=== PATIENT | male | born 1955 | race Caucasian/White ===

== ENCOUNTER → 2019-05-11 00:01 | Outpatient (RCR) | payer MEDICARE, SELFPAY | LOC: ONCMED 04-12 07:21 → ONCRAD 04-14 06:10 | PROVIDERS: Family Provider Family Medicine; PCP Family Medicine; Visit Provider Specialist | DX: Z51.0 Encounter for antineoplastic radiation therapy (principal); C79.51 Secondary malignant neoplasm of bone; Z79.899 Other long term (current) drug therapy; C78.7 Secondary malignant neoplasm of liver and intrahepatic bile duct; C80.1 Malignant (primary) neoplasm, unspecified; D35.01 Benign neoplasm of right adrenal gland; G89.3 Neoplasm related pain (acute) (chronic); C78.01 Secondary malignant neoplasm of right lung; C78.02 Secondary malignant neoplasm of left lung; I11.0 Hypertensive heart disease with heart failure; I50.9 Heart failure, unspecified; J44.9 Chronic obstructive pulmonary disease, unspecified; I25.10 Atherosclerotic heart disease of native coronary artery without angina pectoris; E11.9 Type 2 diabetes mellitus without complications; K44.9 Diaphragmatic hernia without obstruction or gangrene; Z79.891 Long term (current) use of opiate analgesic; Z79.84 Long term (current) use of oral hypoglycemic drugs; Z98.1 Arthrodesis status | CPT/HCPCS: 36591 ×2; 77014 ×11; 77280; 77290 ×2; 77295; 77300; 77334 ×3; 77387 ×4; 77412 ×15; 77470; 80053 ×2; 85025 ×2; 96372; 99214 ×3; J0897; J1642 ×2 ==

== ENCOUNTER 2019-06-02 05:46 | Outpatient (RCR) | payer MEDICARE, SELFPAY ==
[2019-05-24 09:30] LABS: Hematocrit 38.4 % (42.0-52.0); Hemoglobin 12.6 g/dL (11.7-16.6); Mean Corpuscular HGB Conc 32.8 g/dL (30.0-36.0); Mean Corpuscular Hemoglobin 27.9 pg (28.0-34.0); Mean Platelet Volume 10.3 fL (7.4-10.4); Platelet Count 231 10^3/cmm (130-400); Red Blood Count 4.52 10^6/uL (4.1-5.3); Red Cell Distribution Width 14.6 % (12.1-15.1); White Blood Count 5.7 10^3/uL (4.0-10.0)
[2019-05-24 09:40] LABS: Alanine Aminotransferase 16 U/L (0-41); Albumin Level 3.8 g/dL (3.5-5.2); Alkaline Phosphatase 119 IU/L (40-130); Anion Gap 18.5 (5-19); Aspartate Amino Transferase 20 U/L (0-40); Blood Urea Nitrogen 16 mg/dL (8-23); Calcium 9.3 mg/Dl (8.8-10.2); Carbon Dioxide 24 mmol/L (22-29); Chloride 98 mmol/L (98-107); Globulin 3.7 g/dL (1.3-4.6); Glomerular Filtration Rate 97.3 mL/min (90-130); Glucose 231 mg/dL (74-106); Potassium 4.5 mmol/L (3.5-5.1); Sodium 136 mmol/L (136-145); Total Bilirubin 0.3 mg/dL (0.15-1.2); Total Protein 7.5 g/dL (6.6-8.7)
--- NOTE | 2019-05-24 10:50 | ONC FU_ITS ---
Dr. Murphy follow up note Patient: Per Matta < Unit #: [id number]: 1955 Dicatated By: Don Murphy M.D.Date of Visit:May 24, 2019 Onc Med Follow-up/Prog Note History of Present Illness: Mr. Per Matta , is a 63-year-old gentleman with history of CHF, COPD, CAD, diabetes and hypertension. Was recently diagnosed with metastatic adenocarcinoma her liver biopsy done on 12/03/2018. As per patient on 11/07/2018 he went to [facility] ER in [place], [place] with nausea vomiting, headaches, dizziness and generalized weakness and fatigue. At that time he had tick bite in the yard. lyme antibody was negative. At that time his white blood count was 2.7 hemoglobin 11.9 crit 35.5 and platelets 118,000 CT scan of chest abdomen pelvis was done on 11/08/2018 showed negative for PE but positive for multiple pulmonary masses in the both lungs, moderate emphysematous changes. And large irregular mass in the right lobe of the liver measuring 7.4 x 6 cm. Left adrenal mass measuring 4.4 cm suspicious for metastatic disease and on 12/03/2018 he underwent liver biopsy which confirmed adenocarcinoma, primary colorectal region was favored, as per patient he underwent EGD which showed hiatal hernia, no other abnormality and colonoscopy which showed polyp which was benign otherwise unremarkable exam Patient was also having progressive lower back pain and radiological studies confirmed pathological fracture of L1 vertebra, as per patient he underwent single dose of radiation therapy followed by vertebral surgery, T12-L1 laminectomy for resection of epidural tumor, L1 corpectomy and posterior fusion between T12-L2 on 12/23/2018. His further workup done showed his tumor marker checked on 12/10/2018, CA 19???9 was 92.90, CEA was 222.10 Patient denies any history of melena or hematochezia, denies any history of hemoptysis or hematemesis denies any history of jaundice denies any history of hematuria but weight loss and chronic back pain. And now with memory loss and off and on confusion. Patient is on MS Contin 30 mg every 12 hours and hydrocodone for breakthrough. As per medical note, patient was offered CT scan of head at [facility] in [place], [place] but patient declined. 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 and now clinical trial available with [id number], RET mutation for which cabozantinib ,lenvetinib , regorafenib,sorafenib and sunitinib can be used in future , if needed started on FOLFOX/Avastin every 2 weeks 0n 02/15/2019 Interim history, since his last visit patient developed severe right hip pain for which he went to emergency room on 03/18/[address] scan showed destructive lesion involving inner trochanteric right femur measuring 2.8 x 2.5 x 3.2 cm there is a thinning of adjacent anterior femoral cortex and on 03/19/2019 patient underwent prophylactic fixation and biopsy of right intertrochanteric hip fracture utilizing the eblizz gamma 3 trochanteric nail system and biopsy was obtained which confirmed 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 Patient tolerated procedure well now using walker to move around. CT PET scan done on 04/17/2019 showed there is a 6.3 x 4.2 cm mass in the posterior right lower lobe with central necrosis invasion into chest wall and osseous destruction of the posterior right ninth rib and right transverse process of T9 with SUV of 18.5. Other scattered pulmonary nodules in the right lower lobe are FDG positive. A solitary malignant a mass in the anterior liver is centrally necrotic and measures 10.1 x 4.4 cm with SUV of 10. Multiple sites of active osseous metastatic disease are present in the right iliac, L5, T10, spinous process of T3, and sternum sternal lesion has SUV of 11.7. Clinically described osseous metastatic disease the right femur and L1 are FDG negative. 2.8 x 2.2 cm right adrenal mass consistent with adenoma s/p radiation therapy for his mid back pain/Right chest wall and right hip started on 04/22/2019 till 05/14/2019. His systemic chemotherapy was on hold during chemoradiation therapy Came for follow-up and to resume his systemic chemotherapy with FOLFOX/Avastin but patient is complaining of epigastric pain/nausea/indigestion since he was treated with radiation. But no hemoptysis or hematemesis, no diarrhea, or constipation. Pain in the mid back and right chest has improved significantly with radiation therapy and also in the right pelvis. Medications: amLODIPine Besylate 1 Tablet (of 5 mg) Oral daily, Carvedilol 1 Tablet (of 25 mg) Oral b.i.d., Eliquis 1 Tablet (of 5 mg) Oral b.i.d., Furosemide 1 Tablet (of 20 mg) Oral daily, HYDROcodone-Acetaminophen 1 Tablet (of 10-325 mg) Tablet Oral q 8 hours PRN, Linzess Capsule Oral, Losartan Potassium 1 Tablet (of 50 mg) Oral daily, metFORMIN HCl 1 Tablet (of 500 mg) Oral b.i.d., Nitrostat 1 Tablet (of 0.4 mg) Tablet, sublingual Sublingual PRN, Pravastatin Sodium 1 Tablet (of 40 mg) Oral daily, Sertraline HCl 1 Tablet (of 100 mg) Oral daily Allergies: No Known Allergies. Review of Systems: Constitutional - Appetite is poor and weight is decreasing. No fever, chills, hot flashes. Positive for night sweats. Energy level is poor, ENMT - No sinus congestion/drainage. No mouth sores. No sore throat or difficulty swallowing, Hematologic/Lymphatic - Pt reports easy bruising, Respiratory - Positive for occasional shortness of breath. No cough. No pleuritic pain or hemoptysis, Cardiovascular - No angina pain. No palpitations, Gastrointestinal - Positive for nausea and vomiting. No heartburn or acid reflux. No diarrhea. Positive for constipation. No blood in the stool or black stools, Genitourinary (M) - No dysuria or hematuria. No urinary frequency. No urgency or incontinence, Musculoskeletal - Positive for back pain, Neurologic - No headache. Positive for occasional dizziness. No numbness/paresthesias or other focal neurologic symptoms, Psychiatric - No anxiety. Positive for depression (Pt states he is being treated for depression). Positive for insomnia. Vital Signs: Performed on May 24, 2019 09:28 Height - 74.00 in Weight - 215 lbs (LOW) BSA - 2.24 sq.m BMI - 27.60 Temperature - 97.6 F (LOW) Pulse - 95 /min Respiration - 16 /min BP - 138/95 mm(hg) O2 Sat - 95 % (LOW) Pain - 3 Performance Status: 2 - Ambulatory/capable of all self-care, unable to perform any work activities. Up and about more than 50% of waking hours. (ECOG) Physical Examination: ENMT - No oral exudates, ulcers, masses, thrush or mucositis. Oropharynx clear. Tongue normal, Respiratory - Lungs are clear to auscultation without rhonchi or wheezing, Cardiovascular - Regular rate and rhythm of heart, Abdomen - Non-tender, non-distended, Good bowel sounds. No guarding or rebound tenderness. No pulsatile masses, Extremities - no edema. Lab/Imaging: Test performed on May 10, 2019 08:11 Sodium 137 mmol/L Potassium 4.4 mmol/L Chloride 101 mmol/L CO2 24 mmol/L Anion Gap 16.4 BUN 15 mg/dL Creatinine 0.8 mg/dL Cr Clearance (Est) 134.4200 mL/min eGFR 97.3 mL/min Glucose 253 mg/dl Calcium 9.3 mg/dL Protein, Total 6.5 g/dL Albumin 4.2 g/dL Globulin 2.3 gm/dL Bilirubin, Total 0.3 mg/dL ALT (SGPT) 10 U/L AST (SGOT) 15 U/L Alkaline Phosphatase 89 U/L WBC 4.9 10 3/uL RBC 4.16 10 6/uL HGB 11.6 g/dL HCT 35.7 % MCV 85.8 fl MCH 27.9 pg MCHC 32.5 g/dl RDW 15.4 % Platelet Count 173 10 3/cmm MPV 10.2 fl Neutrophils 3.9 10 3/uL Lymphocytes 0.5 10 3/uL Monocytes 0.4 10 3/uL Eosinophils 0.1 10 3/uL Basophils 0.0 10 3/uL Neutrophil % 80.4 % Lymphocyte % 10.4 % Monocyte % 7.6 % Eosinophil % 1.2 % Basophils % 0.2 % Test performed on Mar 15, 2019 11:58 Ua Color YELLOW Ua Appearance CLEAR Ua Glucose TRACE Ua Bilirubin NEG Colored urine samples may result in false positive dipstick reactions. Ua Ketones 1+ Ua Specific [place] 1.025 Ua Blood NEG Ua pH 5.0 Ua Protein NEG Ua Nitrites NEG Ua Leukocyte Esterase NEG Test performed on Feb 22, 2019 12:00 Ferritin 309.0 ng/ml Iron 44 ug/dL % Iron Saturation 20.3 % Test performed on Feb 15, 2019 09:02 CBC Slide Review SLIDE REVIEW PERFORM SLIDE REVIEW AGREES WITH AUTOMATED RESULTS ST Impression: Metastatic adenocarcinoma per liver biopsy done on 12/03/2018 Cancer type ID was done on 01/28/2019 showed with 96% probability , intestine is a primary Less than 1% of malignant cells are positive for neuroendocrine marker , Tumor was positive for CK 20, CD X2, negative for TTF-1, PSA, CA 19???9 92.90 CEA 222.10 Congestive heart failure COPD, Diabetes mellitus Hypertension Lower back pain Status post single dose radiation to lumbar spine followed by vertebral surgery done on 12/23/2018 Now on MS Contin 30 mg every 12 hours and hydrocodone for breakthrough Mid back pain follow-up CT PET scan done on 04/17/2019 showed 6.3 by is 4.2 cm mass in the posterior right lower lobe with central necrosis invasion into chest wall and bone destruction of posterior right ninth rib and transverse process of T9. s/p radiation therapy To right chest wall, right hip started on 04/13/2019 till 05/14/2019 Plan: Discussed with patient regarding his labs white blood count 5.7 hemoglobin 12.6 crit 38.4 platelets 231,000 CMP within normal limit except glucose 231 Clinically, patient is doing well, recently completed radiation therapy to right chest/right hip for metastatic disease and with that his pain has improved but now complaining of indigestion epigastric pain nausea probably due to radiation-induced gastritis/enteritis. Patient was to Resume systemic chemotherapy with Avastin/FOLFOX today but because of radiation-induced enteritis/gastritis related signs symptoms, we will hold his chemotherapy with another week and he was also advised to avoid spices, coffee, citrate food/juices and also consider symptomatic treatment. He was also advised to monitor his blood sugar. Return to clinic in 1 week if symptoms improve to resume his systemic chemotherapy. Patient is also considering moving to [place] in first week of June 2019, referral has been made Signed By: Don Murphy M.D. <<Signature on File>>
[2019-05-24 11:04] LABS: Absolute Segmented Neutrophil 4.5 10/cmm (1.6-7.1); Band Neutrophils Absolute 0.3 10^3/cmm (0.0-1.2); Basophils Absolute 0.1 10^3/cmm (0.0-0.2); Lymphocytes 9 %; Monocytes Absolute 0.2 10^3/cmm (0.1-0.6); Platelet Estimate Normal (Normal); Segmented Neutrophils 80 %; Total Cells Counted 100 (0-100)
[2019-05-31 08:45] LABS: Basophils % 0.3 %; Eosinophils # 0.1 10^3/uL (0.0-0.8); Eosinophils % 0.8 %; Hematocrit 38.4 % (42.0-52.0); Hemoglobin 12.4 g/dL (11.7-16.6); Lymphocytes # 0.6 10^3/uL (0.8-4.8); Lymphocytes % 10.2 %; Mean Corpuscular HGB Conc 32.3 g/dL (30.0-36.0); Mean Corpuscular Hemoglobin 28.5 pg (28.0-34.0); Mean Corpuscular Volume 88.3 fL (80-94); Mean Platelet Volume 9.6 fL (7.4-10.4); Monocytes # 0.5 10^3/uL (0.2-0.9); Monocytes % 7.8 %; Neutrophils # 4.8 10^3/uL (1.8-7.7); Neutrophils % 80.6 %; Nucleated Red Blood Cells % 0 %; Platelet Count 214 10^3/cmm (130-400); Red Blood Count 4.35 10^6/uL (4.1-5.3); Red Cell Distribution Width 14.5 % (12.1-15.1)
[2019-05-31 09:03] LABS: Alanine Aminotransferase 14 U/L (0-41); Albumin Level 3.6 g/dL (3.5-5.2); Alkaline Phosphatase 117 IU/L (40-130); Anion Gap 17.3 (5-19); Aspartate Amino Transferase 22 U/L (0-40); Blood Urea Nitrogen 22 mg/dL (8-23); Calcium 8.9 mg/Dl (8.8-10.2); Carbon Dioxide 24 mmol/L (22-29); Chloride 100 mmol/L (98-107); Globulin 3.7 g/dL (1.3-4.6); Glomerular Filtration Rate 75.2 mL/min (90-130); Glucose 224 mg/dL (74-106); Potassium 4.3 mmol/L (3.5-5.1); Sodium 137 mmol/L (136-145); Total Bilirubin 0.3 mg/dL (0.15-1.2); Total Protein 7.3 g/dL (6.6-8.7)
[2019-05-31] MEDS: dextrose 5% 250 ML 75 ML (10:10)
--- NOTE | 2019-05-31 14:57 | ONC FU_ITS ---
Dr. Murphy follow up note Patient: Per Matta Unit #: [id number]: 1955 Dicatated By: Don Murphy M.D.Date of Visit:May 31, 2019 Onc Med Follow-up/Prog Note History of Present Illness: Mr. Per Matta , is a 63-year-old gentleman with history of CHF, COPD, CAD, diabetes and hypertension. Was recently diagnosed with metastatic adenocarcinoma her liver biopsy done on 12/03/2018. As per patient on 11/07/2018 he went to [facility] ER in [place], [place] with nausea vomiting, headaches, dizziness and generalized weakness and fatigue. At that time he had tick bite in the yard. lyme antibody was negative. At that time his white blood count was 2.7 hemoglobin 11.9 crit 35.5 and platelets 118,000 CT scan of chest abdomen pelvis was done on 11/08/2018 showed negative for PE but positive for multiple pulmonary masses in the both lungs, moderate emphysematous changes. And large irregular mass in the right lobe of the liver measuring 7.4 x 6 cm. Left adrenal mass measuring 4.4 cm suspicious for metastatic disease and on 12/03/2018 he underwent liver biopsy which confirmed adenocarcinoma, primary colorectal region was favored, as per patient he underwent EGD which showed hiatal hernia, no other abnormality and colonoscopy which showed polyp which was benign otherwise unremarkable exam Patient was also having progressive lower back pain and radiological studies confirmed pathological fracture of L1 vertebra, as per patient he underwent single dose of radiation therapy followed by vertebral surgery, T12-L1 laminectomy for resection of epidural tumor, L1 corpectomy and posterior fusion between T12-L2 on 12/23/2018. His further workup done showed his tumor marker checked on 12/10/2018, CA 19???9 was 92.90, CEA was 222.10 Patient denies any history of melena or hematochezia, denies any history of hemoptysis or hematemesis denies any history of jaundice denies any history of hematuria but weight loss and chronic back pain. And now with memory loss and off and on confusion. Patient is on MS Contin 30 mg every 12 hours and hydrocodone for breakthrough. As per medical note, patient was offered CT scan of head at [facility] in [place], [place] but patient declined. 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 and now clinical trial available with [id number], RET mutation for which cabozantinib ,lenvetinib , regorafenib,sorafenib and sunitinib can be used in future , if needed started on FOLFOX/Avastin every 2 weeks 0n 02/15/2019 Interim history, since his last visit patient developed severe right hip pain for which he went to emergency room on 03/18/[address] scan showed destructive lesion involving inner trochanteric right femur measuring 2.8 x 2.5 x 3.2 cm there is a thinning of adjacent anterior femoral cortex and on 03/19/2019 patient underwent prophylactic fixation and biopsy of right intertrochanteric hip fracture utilizing the [employer] gamma 3 trochanteric nail system and biopsy was obtained which confirmed 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 Patient tolerated procedure well now using walker to move around. CT PET scan done on 04/17/2019 showed there is a 6.3 x 4.2 cm mass in the posterior right lower lobe with central necrosis invasion into chest wall and osseous destruction of the posterior right ninth rib and right transverse process of T9 with SUV of 18.5. Other scattered pulmonary nodules in the right lower lobe are FDG positive. A solitary malignant a mass in the anterior liver is centrally necrotic and measures 10.1 x 4.4 cm with SUV of 10. Multiple sites of active osseous metastatic disease are present in the right iliac, L5, T10, spinous process of T3, and sternum sternal lesion has SUV of 11.7. Clinically described osseous metastatic disease the right femur and L1 are FDG negative. 2.8 x 2.2 cm right adrenal mass consistent with adenoma s/p radiation therapy for his mid back pain/Right chest wall and right hip started on 04/22/2019 till 05/14/2019. His systemic chemotherapy was on hold during radiation therapy And restarted on chemotherapy with modified dose FOLFOX and Avastin on 05/31/2019 Came for follow-up, denies any specific complaints except persistent right hip pain and mid back pain which is improving now and under control with current pain medication. Off and on abdominal pain. But no diarrhea constipation, no melena hematochezia, no jaundice, no hemoptysis or hematemesis., Nausea has improved. Medications: amLODIPine Besylate 1 Tablet (of 5 mg) Oral daily, Carvedilol 1 Tablet (of 25 mg) Oral b.i.d., Eliquis 1 Tablet (of 5 mg) Oral b.i.d., Furosemide 1 Tablet (of 20 mg) Oral daily, HYDROcodone-Acetaminophen 1 Tablet (of 10-325 mg) Tablet Oral q 8 hours PRN, Linzess Capsule Oral, Losartan Potassium 1 Tablet (of 50 mg) Oral daily, metFORMIN HCl 1 Tablet (of 500 mg) Oral b.i.d., Nitrostat 1 Tablet (of 0.4 mg) Tablet, sublingual Sublingual PRN, Pravastatin Sodium 1 Tablet (of 40 mg) Oral daily, Sertraline HCl 1 Tablet (of 100 mg) Oral daily Allergies: No Known Allergies. Review of Systems: Constitutional - Appetite is poor and weight is decreasing. No fever, chills, hot flashes and night sweats. Energy level is poor, ENMT - No sinus congestion/drainage. No mouth sores. No sore throat or difficulty swallowing, Hematologic/Lymphatic - Pt reports easy bruising, Respiratory - Positive for occasional shortness of breath. No cough. No pleuritic pain or hemoptysis, Cardiovascular - No angina pain. No palpitations, Gastrointestinal - Positive for nausea and vomiting. No heartburn or acid reflux. No diarrhea. Positive for constipation. No blood in the stool or black stools. Pt has complaints of abdominal pain, Genitourinary (M) - No dysuria or hematuria. No urinary frequency. No urgency or incontinence, Musculoskeletal - Positive for back pain, Neurologic - No headache. Positive for occasional dizziness. No numbness/paresthesias or other focal neurologic symptoms, Psychiatric - No anxiety. Positive for depression (Pt states he is being treated for depression). Positive for insomnia. Vital Signs: Performed on May 31, 2019 09:50 Height - 74.00 in Weight - 213.0 lbs (LOW) BSA - 2.23 sq.m BMI - 27.35 Temperature - 97.9 F (LOW) Pulse - 93 /min Respiration - 24 /min BP - 147/88 mm(hg) (HIGH) O2 Sat - 99 % Pain - 5 Performance Status: 2 - Ambulatory/capable of all self-care, unable to perform any work activities. Up and about more than 50% of waking hours. (ECOG) Physical Examination: ENMT - No oral exudates, ulcers, masses, thrush or mucositis. Oropharynx clear. Tongue normal, Respiratory - Lungs are clear to auscultation without rhonchi or wheezing, Cardiovascular - Regular rate and rhythm of heart, Abdomen - Non-tender, non-distended, Good bowel sounds. No guarding or rebound tenderness. No pulsatile masses, Extremities - no edema. Lab/Imaging: Test performed on May 31, 2019 09:35 Glucose 224 mg/dL BUN 22 mg/dL Creatinine 1.0 mg/dL Cr Clearance (Est) 107.54 mL/min Sodium 137 mmol/L Potassium 4.3 mmol/L Chloride 100 mmol/L CO2 24 mmol/L Calcium 8.9 mg/dL Protein, Total 7.3 g/dL Albumin 3.6 g/dL Globulin 3.7 g/dL Bilirubin, Total 0.3 mg/dL Alkaline Phosphatase 117 IU/L AST (SGOT) 22 IU/L ALT (SGPT) 14 IU/L WBC 6.0 10^9/L RBC 4.35 10^12/L HGB 12.4 g/dL HCT 38.4 % MCV 88.3 fl MCH 28.5 pg MCHC 32.3 g/dL RDW 14.5 % Platelet Count 214 10^9/L MPV 9.6 fL Neutrophils (Gran) 4.8 10^9/L Lymphocytes 0.612 10^9/L Monocytes 0.468 10^9/L Eosinophils 0.048 10^9/L Basophils 0.018 10^9/L NRBCs 0 /100 WBC Test performed on May 31, 2019 08:25 Neutrophil % 0.8 % Test performed on May 24, 2019 11:45 Manual Basophils 1.0 % Test performed on May 10, 2019 08:11 Anion Gap 16.4 eGFR 97.3 mL/min Lymphocyte % 10.4 % Eosinophil % 1.2 % Basophils % 0.2 % Test performed on Mar 15, 2019 11:58 Ua Color YELLOW Ua Appearance CLEAR Ua Glucose TRACE Ua Bilirubin NEG Colored urine samples may result in false positive dipstick reactions. Ua Ketones 1+ Ua Specific [place] 1.025 Ua Blood NEG Ua pH 5.0 Ua Protein NEG Ua Nitrites NEG Ua Leukocyte Esterase NEG Test performed on Feb 22, 2019 12:00 Ferritin 309.0 ng/ml Iron 44 ug/dL % Iron Saturation 20.3 % Test performed on Feb 15, 2019 09:02 CBC Slide Review SLIDE REVIEW PERFORM SLIDE REVIEW AGREES WITH AUTOMATED RESULTS ST Impression: Metastatic adenocarcinoma per liver biopsy done on 12/03/2018 Cancer type ID was done on 01/28/2019 showed with 96% probability , intestine is a primary Less than 1% of malignant cells are positive for neuroendocrine marker , Tumor was positive for CK 20, CD X2, negative for TTF-1, PSA, CA 19???9 92.90 CEA 222.10 Congestive heart failure COPD, Diabetes mellitus Hypertension Lower back pain Status post single dose radiation to lumbar spine followed by vertebral surgery done on 12/23/2018 Now on MS Contin 30 mg every 12 hours and hydrocodone for breakthrough Mid back pain follow-up CT PET scan done on 04/17/2019 showed 6.3 by is 4.2 cm mass in the posterior right lower lobe with central necrosis invasion into chest wall and bone destruction of posterior right ninth rib and transverse process of T9. s/p radiation therapy To right chest wall, right hip started on 04/13/2019 till 05/14/2019 Plan: Discussed with patient regarding his labs white blood count 6 hemoglobin 12.4 crit 38.4 platelets 214,000 CMP within normal limit except glucose 228 Clinically, patient is doing well, tolerating now recovering from his palliative radiation therapy., Nausea has improved so we will restart him on his systemic chemotherapy with modified dose FOLFOX/Avastin today and also continue with monthly dose of Xgeva. And also check his CEA level today. Patient is planning to move to [place], close to his family and he will resume his further care there, Signed By: Don Murphy M.D. <<Signature on File>>
[2019-06-02] MEDS: sodium chloride 0.9% 1,000 ML 999 ML IV (14:40)
[2019-06-02] MEDS: prochlorperazine 10 mg Tablet PO (14:40)
== END 2019-06-11 23:59 | disposition home or self-care (01) ==
LOC: ONCMED 05:46
PROVIDERS: Internal Medicine Hematology & Oncology; Visit Provider Internal Medicine Medical Oncology
DX: Z51.0 Encounter for antineoplastic radiation therapy (principal); Z51.11 Encounter for antineoplastic chemotherapy; C17.9 Malignant neoplasm of small intestine, unspecified; C78.7 Secondary malignant neoplasm of liver and intrahepatic bile duct; C79.51 Secondary malignant neoplasm of bone; C78.01 Secondary malignant neoplasm of right lung; G89.3 Neoplasm related pain (acute) (chronic); I50.9 Heart failure, unspecified; I11.0 Hypertensive heart disease with heart failure; J44.9 Chronic obstructive pulmonary disease, unspecified; I25.10 Atherosclerotic heart disease of native coronary artery without angina pectoris; E11.9 Type 2 diabetes mellitus without complications; D35.01 Benign neoplasm of right adrenal gland; G47.00 Insomnia, unspecified; F32.9 Major depressive disorder, single episode, unspecified; Z79.891 Long term (current) use of opiate analgesic; Z79.84 Long term (current) use of oral hypoglycemic drugs
CPT/HCPCS: 36591; 77014; 77336; 77412; 80053; 82378; 85007; 85025; 85027; 96360; 96367; 96368; 96413; 96415; 96416; 96417; 99214; J0640; J1100; J2469; J7030; J9035; J9263; Q0164